=== PATIENT | female | born 1950 ===

== ENCOUNTER 2018-02-22 10:55 | Outpatient (CLI) | payer BC | END 2018-02-22 11:16 | disposition home or self-care (01) | LOC: LAB 10:55 | DX: D64.89 Other specified anemias (principal); R74.0 Nonspecific elevation of levels of transaminase and lactic acid dehydrogenase [LDH]; E72.89 Other specified disorders of amino-acid metabolism ==

== ENCOUNTER 2018-06-25 10:55 | Outpatient (CLI) | payer BC | END 2018-06-25 11:08 | disposition home or self-care (01) | LOC: MAMO-SONO 10:55 | DX: C50.412 Malignant neoplasm of upper-outer quadrant of left female breast (principal) ==